=== PATIENT | female | born 1995 | race Caucasian/White ===

== ENCOUNTER 2017-06-04 12:12 | Emergency (ER) | payer BC, OTHER ==
[2017-06-04 12:58] VITALS: BP 118/72
[2017-06-04] MEDS ORDERED: Ibuprofen ADULT LIQ* 600 MG/30 ML UDC PO ONE (13:01)
--- NOTE | 2017-06-04 13:48 | UC ---
UC General HPI - HPI Summary HPI Summary: pt is c/o 2.5 days of fever, chills, bodyaches, cough and feeling sob. had diarrhea x1 but no vomiting. has had head and chest congestion as well. - History of Current Complaint Chief Complaint: UCGeneralIllness Stated Complaint: FEVER/BODY ACHES Time Seen by Provider: 06/04/17 12:58 Hx Obtained From: Patient Hx Last Menstrual Period: depo provera Onset/Duration: Sudden Onset Timing: Constant Pain Intensity: 0 Aggravating: nothing Alleviating: motrin Associated Signs & Symptoms: Positive: Cough, Diarrhea, Fever, Headache, SOB, Wheezing. Negative: Chest Pain - Allergy/Home Medications Allergies/Adverse Reactions: Allergies Allergy/AdvReac Type Severity Reaction Status Date / Time No Known Allergies Allergy Verified 06/04/17 12:50 Home Medications: Home Medications Ibuprofen TAB* [Advil TAB*] 200 mg PO Q6H PRN 06/04/17 [History Confirmed ] PMH/Surg Hx/FS Hx/Imm Hx Previously Healthy: Yes - Surgical History Surgical History: None - Family History Known Family History: Positive: None - Social History Occupation: Employed Part-time, Student Lives: With Family Alcohol Use: None Substance Use Type: None Smoking Status (MU): Never Smoked Tobacco - Immunization History Most Recent Influenza Vaccination: 2 weeks ago Vaccination Up to Date: Yes Review of Systems Constitutional: Fever, Chills Skin: Negative Eyes: Negative ENT: Nasal Discharge Respiratory: Shortness Of Breath, Cough Cardiovascular: Negative Gastrointestinal: Diarrhea Genitourinary: Negative Motor: Negative Neurovascular: Negative Musculoskeletal: Negative Neurological: Headache Psychological: Negative Is Patient Immunocompromised?: No All Other Systems Reviewed And Are Negative: Yes Physical Exam Triage Information Reviewed: Yes Appearance: Well-Appearing Vital Signs: Initial Vital Signs Temp 100.8 F 06/04/17 12:48 Pulse 116 06/04/17 12:48 Resp 22 06/04/17 12:48 BP 118/72 06/04/17 12:48 Pulse Ox 99 06/04/17 12:48 Vital Signs Reviewed: Yes Eyes: Positive: Conjunctiva Clear ENT: Positive: Pharynx normal, Nasal congestion, TMs normal. Negative: Nasal drainage Neck: Positive: Supple, Nontender, No Lymphadenopathy. Negative: Nuchal Rigidity Respiratory: Positive: Lungs clear, No respiratory distress, Decreased breath sounds Cardiovascular: Positive: No Murmur, Brisk Capillary Refill, Tachycardia Abdomen Description: Positive: Nontender, No Organomegaly, Soft. Negative: Distended, Guarding Bowel Sounds: Positive: Present Musculoskeletal: Positive: ROM Intact Neurological: Positive: Alert Psychological: Positive: Age Appropriate Behavior Skin Exam: Normal Diagnostics - Laboratory Diagnostic Studies Completed/Ordered: B+ flu, Wet read CXR=nad - Radiology No standard instances Xray Interpretation: No Acute Changes Radiology Interpretation Completed By: Radiologist Course/Dx - Course Course Of Treatment: rapid flu B+. TAMIFLU DECLINED. - Differential Dx - Multi-Symptom Provider Diagnoses: Influenza B Discharge - Sign-Out/Discharge Documenting (check all that apply): Discharge/Admit/Transfer - Discharge Plan Condition: Stable Disposition: HOME Prescriptions: Albuterol HFA INHALER* [Ventolin HFA Inhaler*] 2 puff INH Q6H #1 mdi Patient Education Materials: Influenza (ED) Forms: *Work Release, *School Release Referrals: Yolande Ge [Primary Care Provider] - 7 Days - Billing Disposition and Condition Condition: STABLE Disposition: HOME
--- NOTE | 2017-06-04 14:21 | RAD ---
HISTORY: Fever, cough, shortness of breath COMPARISONS: None VIEWS: 4: Frontal dual-energy and lateral views of the chest. FINDINGS: CARDIOMEDIASTINAL SILHOUETTE: The cardiomediastinal silhouette is normal. JIM: The jim are normal. PLEURA: The costophrenic angles are sharp. No pleural abnormalities are noted. LUNG PARENCHYMA: The lungs are clear. ABDOMEN: The upper abdomen is clear. There is no subphrenic gas. BONES AND SOFT TISSUES: No bone or soft tissue abnormalities are noted. OTHER: None. IMPRESSION: NO ACTIVE CARDIOPULMONARY DISEASE.
== END 2017-06-04 14:39 | disposition home or self-care (01) ==
LOC: UCCORT 12:12
DX: J10.1 Influenza due to other identified influenza virus with other respiratory manifestations (principal)
CPT/HCPCS: 71046; 87502; 99212; A9270-GY; G0463

== ENCOUNTER 2017-11-12 16:17 | Emergency (ER) | payer BC ==
[2017-11-12 17:25] VITALS: BP 103/65
--- NOTE | 2017-11-12 18:27 | UC ---
Throat Pain/Nasal Nilesh HPI - HPI Summary HPI Summary: 22-year-old female presents with one-week history of sore throat. Associated with chills, nasal congestion, postnasal drip, and a occasionally productive cough for green sputum. Denies fever, ear pain or drainage, dysphagia, chest pain, shortness of breath, wheezing, abdominal pain, nausea, or vomiting. Patient reports history of RAD with flu last year. - History of Current Complaint Chief Complaint: UCGeneralIllness Stated Complaint: FEVER,CHILLS,SORE THROAT Time Seen by Provider: 11/12/17 18:11 Hx Obtained From: Patient Hx Last Menstrual Period: depo Onset/Duration: Gradual Onset, Lasting Days - 7 Severity: Mild Pain Intensity: 3 Cough: Productive Associated Signs & Symptoms: Positive: Sinus Discomfort, Nasal Discharge. Negative: Dysphagia, Wheezing, Hoarseness, Fever, Vomiting, Rash - Allergies/Home Medications Allergies/Adverse Reactions: Allergies Allergy/AdvReac Type Severity Reaction Status Date / Time No Known Allergies Allergy Verified 11/12/17 17:17 Home Medications: Home Medications Albuterol HFA INHALER* [Ventolin HFA Inhaler*] 2 puff INH Q6H PRN 11/12/17 [ History Confirmed 11/12/17] Eucalyptus/Menthol [[place] Cough Drops] 1 [place] DAILY PRN 11/12/17 [History Confirmed 11/12/17] Loratadine [Claritin 10 MG CAP] 10 mg PO DAILY PRN 11/12/17 [History Confirmed 11/12/17] PMH/Surg Hx/FS Hx/Imm Hx Previously Healthy: Yes - Denies significant PMH - Surgical History Surgical History: None - Family History Known Family History: Positive: Hypertension Family History: Noncontributory - Social History Occupation: Student Lives: Dormitory/Roommates Alcohol Use: Rare Substance Use Type: None Smoking Status (MU): Never Smoked Tobacco - Immunization History Most Recent Influenza Vaccination: 2 weeks ago Vaccination Up to Date: Yes Review of Systems Constitutional: Chills Skin: Negative Eyes: Negative ENT: Sore Throat, Nasal Discharge, Sinus Congestion Respiratory: Cough Cardiovascular: Negative Gastrointestinal: Negative Is Patient Immunocompromised?: No All Other Systems Reviewed And Are Negative: Yes Physical Exam Triage Information Reviewed: Yes Appearance: Well-Appearing, No Pain Distress, Well-Nourished Vital Signs: Initial Vital Signs Temp 98.4 F 11/12/17 17:20 Pulse 85 11/12/17 17:20 Resp 18 11/12/17 17:20 BP 103/65 11/12/17 17:20 Pulse Ox 100 11/12/17 17:20 Eyes: Positive: Conjunctiva Clear. Negative: Discharge ENT: Positive: Hearing grossly normal, Pharyngeal erythema - Mild erythema with cobblestoning, Nasal congestion, Nasal drainage, TMs normal, Uvula midline. Negative: Tonsillar swelling, Tonsillar exudate, Sinus tenderness Neck: Positive: Supple, Nontender, No Lymphadenopathy Respiratory: Positive: Lungs clear, Normal breath sounds, No respiratory distress Cardiovascular: Positive: RRR, No Murmur Neurological: Positive: Alert Skin Exam: Normal Throat Pain/Nasal Course/Dx - Course Course Of Treatment: 22 year old female with 1 week history of sore throat. Afebrile. Rapid strep negative. Symptoms likely viral. Recommend symptomatic treatment. Patient verbalizes understanding and agrees with POC. - Differential Dx/Diagnosis Provider Diagnoses: Viral pharyngitis Discharge - Sign-Out/Discharge Documenting (check all that apply): Patient Departure All imaging exams completed and their final reports reviewed: No Studies - Discharge Plan Condition: Stable Disposition: HOME Patient Education Materials: Pharyngitis (ED) Referrals: Yolande Ge [Primary Care Provider] - 7 Days (If symptoms persist.) Additional Instructions: Your rapid strep test performed in the clinic today was negative. Your symptoms are likely from a viral infection. Viral infections do not respond to antibiotics and typically run their course over 7-10 days. Drink plenty of fluids to stay well hydrated. Gargle with salt water several times a day to help with sore throat. Take acetaminophen (Tylenol) or ibuprofen (Motrin, Advil) according to directions as needed for aches pains or fever. You may also use Chloraseptic spray or Cepacol lozenges for some temporary pain relief for your sore throat. Follow-up with your primary care provider in 7 days if your symptoms persist. Seek immediate medical attention if you have a persistent fever greater than 100.5 F despite taking acetaminophen or ibuprofen, you are unable to swallow, have difficulty breathing, or any worsening of symptoms. - Billing Disposition and Condition Condition: STABLE Disposition: Home
== END 2017-11-12 18:43 | disposition home or self-care (01) ==
LOC: UCCORT 16:17
DX: J02.8 Acute pharyngitis due to other specified organisms (principal)
CPT/HCPCS: 87651; 99211; G0463